=== PATIENT | female | born 1980 | race Two or more races ===

== ENCOUNTER 2024-02-29 08:44 | Emergency (ER) | payer OTHER ==
[~2024-02-29] VITALS: Ht 154.9 cm; Wt 73.5 kg
[2024-02-29] MEDS ORDERED: ZESTRIL10 M1 PO (09:12)
[2024-02-29 09:13] VITALS: BP 170/90; O2SAT 100
[2024-02-29] MEDS ORDERED: ZESTRIL5 MG PO (09:13)
[2024-02-29] MEDS ORDERED: KETOROLAC TROMETHAMINE 60 MG VIAL IM ONE (10:00)
[2024-02-29] MEDS ORDERED: ACETAMINOPHEN WITH CODEINE 1 UDTAB TABLET PO ONE (10:00)
== END 2024-02-29 13:37 | disposition home or self-care (01) ==
LOC: ER 08:46
DX: M62.830 Muscle spasm of back (principal); M54.50 Low back pain, unspecified